=== PATIENT | male | born 1965 | race Caucasian/White ===

== ENCOUNTER 2025-03-04 18:38 | Emergency (ER) | payer OTHER ==
[~2025-03-04] VITALS: Ht 167.6 cm; Wt 84.4 kg
[2025-03-04 19:36] VITALS: BP 153/88; TEMP 100.3
[2025-03-04] MEDS ORDERED: AMOX-430 PO (19:57)
[2025-03-04] MEDS ORDERED: IBUP-1490 PO (19:58)
[2025-03-04] MEDS ORDERED: dexaMETHasone SOD PHOSPHATE 1 ML ONE (20:04)
[2025-03-04] MEDS: dexaMETHasone SOD PHOSPHATE 4 MG/ML VIAL IM ONE (20:07)
[2025-03-04 20:12] VITALS: O2SAT 96
== END 2025-03-04 20:12 | disposition home or self-care (01) ==
LOC: ER 18:50
DX: J36 Peritonsillar abscess (principal); I10 Essential (primary) hypertension
CPT/HCPCS: 99283; 96372; J1100